=== PATIENT | male | born 1960 ===

== ENCOUNTER 2016-08-14 14:00 | Outpatient (CLI) | payer BC ==
--- NOTE | 2016-08-14 15:11 | Diagnostic Imaging Report ---
Indication: Pain Findings: 3 views of the right elbow were obtained. No acute fractures, malalignment, erosions or periostitis are identified. Bone mineralization is within normal limits. Soft tissues are unremarkable. Impression: Negative examination of the elbow.
== END 2016-08-15 15:30 | disposition home or self-care (01) ==
LOC: RAD 14:00
DX: M25.521 Pain in right elbow (principal)